=== PATIENT | male | born 1975 | race Caucasian/White ===

== ENCOUNTER → 2016-08-10 | Outpatient (CLI) | payer OTHER ==
[~2016-08-10] MED LIST: ABILIFY PO; KETOPROFEN PO; SEROQUEL; ZOLOFT PO; ZYPREXA10 MG PO
--- NOTE | ~2016-08-10 | CR63 ---
[facility] A Service of [facility] & [facility] / [facility] RADIOLOGY TEXT RESULTS PATIENT: CLIFF RIVERA LOCATION: [facility] : 71 UNIT #: [id number] AGE: [address]: Helio Shaw MD SEX: M ORDER DR: [id number] [facility] [address] [place], [place] [address] [id number] O MR#: [id number] Acc #: [id number] NAME: CLIFF RIVERA : 1975 SEX: M STUDY DATE/TIME: 08/10/2016 7:51 UNIT: [facility] ROOM: STUDY DESCRIPTION: CR Chest 2 View Attending Physician: Helio Shaw M.D. Referring Physician: Helio Shaw M.D. Ordering Physician: Helio Shaw M.D. Primary Care Physician: No Primary Care Physician MEDICAL IMAGING REPORT This report is preliminary unless electronic signature is present EXAM Chest, PA and lateral. HISTORY Preop Lap-Band and possible paraesophageal hernia repair. FINDINGS Cardiovascular configuration is normal and the lungs are clear. Compared with 11/01/2012 there has been no change. CONCLUSION Normal chest. Dictated by... Helio Jacobo M.D. THIS IS AN ELECTRONICALLY VERIFIED REPORT Helio Jacobo M.D. at 08/10/2016 5:18 PM JO/naveen TD: 08/10/2016 09:23 JOB #: [id number] MEDICAL IMAGING REPORT Page 1 of 1 COPY
--- NOTE | ~2016-08-10 | CR97 ---
[facility] A Service of [facility] & [facility] RADIOLOGY TEXT RESULTS PATIENT: CLIFF RIVERA LOCATION: [facility] : 71 UNIT #: [id number] AGE: [address]: Helio Shaw MD SEX: M ORDER DR: [id number] [facility] [address] [place], [place] [address] [id number] O MR#: [id number] Acc #: [id number] NAME: CLIFF RIVERA : 1975 SEX: M STUDY DATE/TIME: 08/10/2016 8:20 UNIT: [facility] ROOM: STUDY DESCRIPTION: CR Esophagram Attending Physician: Helio Shaw M.D. Referring Physician: Helio Shaw M.D. Ordering Physician: Helio Shaw M.D. Primary Care Physician: Primary Care Physician No MEDICAL IMAGING REPORT This report is preliminary unless electronic signature is present EXAM Barium esophagram INDICATION Morbid obesity. Preop for Lap-Band surgery. FLUORO TIME 0.3 minutes. 6 fluoroscopic images were taken. FINDINGS Thoracic esophagus is normal in course and caliber. Normal motility. No evidence of hiatal hernia or stricture. IMPRESSION Normal. Dictated by... Pasquale Sebastian M.D. THIS IS AN ELECTRONICALLY VERIFIED REPORT Pasquale Sebastian M.D. at 08/10/2016 4:05 PM NOE/steven TD: 08/10/2016 10:45 JOB #: [id number] MEDICAL IMAGING REPORT Page 1 of 1 COPY
--- NOTE | ~2016-08-10 | EKG ---
PATIENT: CLIFF RIVERA UNIT #: [id number] Ventricular Rate: 88 BPM Atrial Rate: 88 BPM P-R Interval: 154 ms QRS Duration: 84 ms Q-T Interval: 370 ms QTC Calculation(Bezet): 447 ms P Muldoon: 58 degrees Calculated R Muldoon: -2 degrees Calculated T Muldoon: 20 degrees Diagnosis Line: Normal sinus rhythm Diagnosis Line: Low voltage QRS Diagnosis Line: Borderline ECG Diagnosis Line: No previous ECGs available Diagnosis Line: Confirmed by MANDY BAKER MD ([id number]) on Diagnosis Line: 08/10/2016 11:22:49 PM INTERPRETING MD: CY
[2016-08-10 08:54] LABS: HEMATOCRIT 46.5 % (38.0-50.0); HEMOGLOBIN 15.5 gm/dL (13.0-16.0); MEAN CELL VOLUME 92.5 FL (83-96); MEAN CORPUSCULAR HEMOGLOBIN 30.8 PG (28-34); MEAN CORPUSCULAR HGB CONC 33.3 g/dL (30-36); MEAN PLATELET VOLUME 7.1 FL (6.5-11.5); RED BLOOD COUNT 5.03 X10e (3.90-5.60); RED CELL DISTRIBUTION WIDTH 13.3 % (11.0-15.5); WHITE BLOOD COUNT 11.3 X10e3 (4.0-10.5)
[2016-08-10 10:22] LABS: ALBUMIN SERUM 4.1 g/dL (3.5-5.0); BILIRUBIN,TOTAL 0.6 mg/dL (0.2-2.0); BUN/CREATININE RATIO 16.66; CALCIUM SERUM 9.2 mg/dL (8.4-10.2); CREATININE SERUM 0.9 mg/dL (0.6-1.4); POTASSIUM 4.2 mmol/L (3.5-5.1); PROTEIN TOTAL SERUM 7.4 g/dL (6.0-8.3)
== END | disposition home or self-care (01) ==
LOC: CRAD 07:40
PROVIDERS: Surgery
DX: Z01.818 Encounter for other preprocedural examination (principal); E66.01 Morbid (severe) obesity due to excess calories
CPT/HCPCS: 36415; 71020; 74220; 80053; 80061; 84443; 85027; 93005

== ENCOUNTER → 2016-08-22 | Day surgery (SDC) | payer OTHER ==
--- NOTE | ~2016-08-22 | OR ---
Unit #: [id number] #: [id number] Patient: CLIFF RIVERA [id number] [address] [address] [id number] O MR#: [id number] NAME: CLIFF RIVERA ROOM: Date of Procedure: 08/22/2016 Admission Date: 08/22/2016 Surgeon: Helio Shaw M.D. : 1975 Attending Physician: Helio Shaw M.D. OPERATIVE REPORT PREOPERATIVE DIAGNOSIS Chronic morbid obesity, BMI of 40. POSTOPERATIVE DIAGNOSES 1. Chronic morbid obesity, BMI of 40. 2. Paraesophageal hiatal hernia. PROCEDURES PERFORMED 1. Laparoscopic adjustable gastric band. 2. Laparoscopic paraesophageal hiatal hernia repair. CUT OFF SAW TENDER METAL Jt Gordon M.D. ANESTHESIA General endotracheal anesthesia. ESTIMATED BLOOD LOSS Minimal. IV FLUIDS 800 crystalloid. COMPLICATIONS None. INDICATIONS FOR PROCEDURE The patient is 41-year-old with chronic morbid obesity. DESCRIPTION OF PROCEDURE The patient was taken to the operating room and placed in supine position. General anesthesia was induced. The abdomen was prepped and draped. A 3-cm incision was then made left of the midline. A 10-mm Visiport was then placed intraabdominal under direct vision. The abdomen was insufflated to 15 mmHg with CO2. The patient was then placed in a steep reversed Trendelenburg. General inspection of the abdomen revealed what appeared to be a paraesophageal hernia. This was identified with a defect at the diaphragm using anterior palpation with the instrument. We then made a small incision in the subxiphoid region. A Karen liver retractor was then placed intraabdominal and used to retract the left lobe of the liver upward to further expose the paraesophageal hernia and GE junction. I then placed a 5-mm port in the right upper quadrant, a 10-mm Unit #: [id number] #: [id number] Patient: CLIFF RIVERA port in the left upper quadrant, and another 5-mm port in the left lower quadrant. The stomach was retracted medial and downward. Upon retracting the stomach, we took down the paraesophageal ligament, exposing the right and left pedro at the paraesophageal hernia. Any hernia sac was reduced. We then repaired the paraesophageal hernia using interrupted #0 Ethibond sutures in a xsujgu-[id number]-zsomp type fashion. This formed a snug repair to the anterior esophagus. We then retracted the stomach medially and further exposed the angle of His using Bovie electrocautery. The stomach was then retracted laterally. We then took down the hepatogastric ligament with Bovie electrocautery. This exposed the right pedro. Using blunt dissection, I created a retrogastric tunnel from this point to the angle of His. The band was then placed intraabdominal through the 10-mm port site. This was then brought through the retrogastric tunnel in a pars flaccida technique. The band was then closed anteriorly to form a 20-mL to 25-mL anterior gastric pouch. The fundus was then secured to the anterior pouch to prevent movement around the stomach using two interrupted #0 Ethibond sutures. A third suture was then used as a gathering stitch from the lesser curve to the anterior stomach, gathering and imbricating the remaining fundus of the stomach. The tubing was then brought out through the midline 10-mm port site. All ports and the Karen liver retractor were removed under direct vision with no evidence of abdominal hemorrhage. A polypropylene mesh was then secured to the posterior face of the laparoscopic band port. This was secured using #0 Ethibond suture. This was then cut to shape. The port was then connected to the tubing and placed into a subcutaneous pocket just anterior to the rectus sheath. Its position was then confirmed. All tubing was then placed intraabdominal. The wounds were then closed with interrupted 4-0 Vicryl. The patient tolerated the procedure well and was sent to the recovery room in good condition. Dictated by... Jania Carlos/sebas TD: 08/22/2016 11:07 JOB #: [id number] OPERATIVE REPORT Page 1 of 1 X Helio Shaw MD X PROCEDURE OPERATIVE NOTE
--- NOTE | ~2016-08-22 | CR7 ---
[facility] A Service of [facility] & [facility] & [facility] RADIOLOGY TEXT RESULTS PATIENT: CLIFF RIVERA LOCATION: [facility] : 71 UNIT #: [id number] AGE: [address]: Helio Shaw MD SEX: M ORDER DR: [id number] [facility] [address] [place], [place] [address] [id number] O MR#: [id number] Acc #: [id number] NAME: CLIFF RIVERA : 1975 SEX: M STUDY DATE/TIME: 08/22/2016 8:49 UNIT: [facility] ROOM: STUDY DESCRIPTION: CR Abdomen Single AP View Attending Physician: Helio Shaw M.D. Ordering Physician: Helio Shaw M.D. Primary Care Physician: Generic Doctor Not In System MEDICAL IMAGING REPORT This report is preliminary unless electronic signature is present EXAM KUB 08/22/2016 INDICATION Status post gastric band placement today. FINDINGS Supine KUB was obtained. Gastric band is present with a supine phi angle of about 47 degrees. Port is in the left [id number] abdomen. Bowel gas pattern normal. IMPRESSION Gastric band in place with a phi angle of about 47 degrees. Dictated by... Ammon Lewis Jr., M.D. THIS IS AN ELECTRONICALLY VERIFIED REPORT Ammon Lewis Jr., M.D. at 08/22/2016 4:59 PM TEE/jason TD: 08/22/2016 10:46 JOB #: [id number] MEDICAL IMAGING REPORT Page 1 of 1 COPY
== END | disposition home or self-care (01) ==
LOC: CSUR 05:42
DX: E66.01 Morbid (severe) obesity due to excess calories (principal); K44.9 Diaphragmatic hernia without obstruction or gangrene; J45.909 Unspecified asthma, uncomplicated; F32.9 Major depressive disorder, single episode, unspecified; F41.9 Anxiety disorder, unspecified; G47.30 Sleep apnea, unspecified; Z68.41 Body mass index [BMI] 40.0-44.9, adult; Z79.899 Other long term (current) drug therapy; Z72.4 Inappropriate diet and eating habits
CPT/HCPCS: 74000; C1781; J0330; J0690; J1650; J1885; J2250; J2405; J3010